=== PATIENT | female | born 1980 | race Asian ===

== ENCOUNTER 2016-06-10 06:35 | Inpatient (IN) | payer OTHER ==
[2016-06-10] MEDS ORDERED: ELECTROLYTE-148 SOLN 500 ML IV ONE (07:00)
[2016-06-10 07:44] VITALS: BMI 33.6
[2016-06-10] MEDS ORDERED: CITRIC ACID/SODIUM CITRATE 30 ML UNIT-DOSE CUP PO ONE (07:59)
[2016-06-10] MEDS ORDERED: ELECTROLYTE-148 SOLN 1,000 ML IV SCH (08:00)
--- NOTE | 2016-06-10 08:05 | HP ---
Past Medical History - Primary Care Physician PCP:: Kirsten Waite - Admission Chief Complaint: Previous cs x3. labor. gestational diabetes insulin dependent History of Present Illness: 35 yo EGA 38 weeks with gestational DM on insulin for repeat CS. Pt without complaints History Source: Patient - Past Medical History ...: 4 ...Para: 3 ...Term: 2 ...: 1 ...Spon : 1 ...LMP: 09/18/15 ... Weeks Gestation by Dates: 38 ...EDC by Dates: 06/24/16 ...EDC by Sono: 06/23/16 - Past Surgical History Past Surgical History: Yes: Hx Myomectomy: No Hx Transabdominal Cerclage: No - Smoking History Smoking history: Never smoked Have you smoked in the past 12 months: No Aproximately how many cigarettes per day: 0 - Alcohol/Substance Use Hx Alcohol Use: No History of Substance Use: reports: None - Social History History of Recent Travel: Yes Home Medications - Allergies Allergies/Adverse Reactions: Allergies Allergy/AdvReac Type Severity Reaction Status Date / Time No Known Allergies Allergy Verified 06/03/16 09:17 - Home Medications Home Medications: Ambulatory Orders Insulin NPH 26 unit SQ BID 06/10/16 Insulin Regular 15 unit SQ BID 06/10/16 Vitamins (Sjr) - 1 tab PO DAILY 06/10/16 Review of Systems - Review of Systems Constitutional: reports: No Symptoms Eyes: reports: No Symptoms HENT: reports: No Symptoms Neck: reports: No Symptoms Cardiovascular: reports: No Symptoms Respiratory: reports: No Symptoms Gastrointestinal: reports: Abdominal Pain Genitourinary: reports: No Symptoms Breasts: reports: No Symptoms Reported Musculoskeletal: reports: No Symptoms Integumentary: reports: No Symptoms Neurological: reports: No Symptoms Endocrine: reports: No Symptoms Hematology/Lymphatic: reports: No Symptoms Psychiatric: reports: No Symptoms Physical Exam - Maternity Vital Signs: Vital Signs Temperature 98 F 06/10/16 07:19 Pulse Rate 90 06/10/16 07:19 Respiratory Rate 20 06/10/16 07:19 Blood Pressure 123/70 06/10/16 07:19 O2 Sat by Pulse Oximetry (%) Constitutional: Yes: Well Nourished, No Distress Neck: Yes: WNL Cardiovascular: Yes: WNL, Regular Rate and Rhythm Breast(s): Yes: WNL - Abdominal Exam/OB Number of Fetuses: Single Presentation: Vertex Contractions: Yes Regularity: Irregular Monitor Mode: External Category: I Decelerations: None - Vaginal Exam/OB Vaginal Bleediing: No Speculum Exam: No Dilatation (cm): closed Amniotic Membrane Status: Intact Presentation: Vertex/Position - Physical Exam Musculoskeletal: Yes: WNL Extremities: Yes: WNL Integumentary: Yes: WNL Hemorrhage Risk Assessment - Risk Factors Medium Risk Factors: Yes: Prior , uterine surgery,or multiple laparotomies Risk Score: 1 Risk Level: Medium Risk Problem List - Problems (1) delivery delivered Code(s): O82 - ENCOUNTER FOR DELIVERY WITHOUT INDICATION (2) Gestational diabetes mellitus (GDM) in puerperium Code(s): O24.439 - GESTATIONAL DIABETES IN THE PUERPERIUM, UNSP CONTROL Assessment/Plan Previous Section x 3 Gestational DM on insulin Pod2 Plan repeat CS
[2016-06-10] MEDS ORDERED: morphine SULFATE/Preservative Free 0.5 MG/ML (1cc Syringe) SPIN ONE (08:17)
[2016-06-10] MEDS ORDERED: ONDANSETRON 4 MG/2 ML VIAL IVPB PRN (08:48)
[2016-06-10 09:03] LABS: ARTERIAL BLD GAS O2 SATURATION 12.3 % (90-98.9); ARTERIAL BLOOD GAS HCO3 24.8 meq/L (22-26)
[2016-06-10 09:05] LABS: ARTERIAL BLD GAS O2 SATURATION 54.4 % (90-98.9); ARTERIAL BLOOD GAS BASE EXCESS -3.7 meq/l (-2-2); ARTERIAL BLOOD GAS HCO3 22.1 meq/L (22-26); ARTERIAL BLOOD GAS pH 7.32 (7.35-7.45)
[2016-06-10 09:08] LABS: ARTERIAL BLOOD GAS pH 7.23 (7.35-7.45)
[2016-06-10 09:09] LABS: ARTERIAL BLOOD GAS PO2 26.2 mmHg (80-100)
[2016-06-10] MEDS ORDERED: diphenhydrAMINE HCL 25 MG CAPSULE (FP) PO PRN (09:27)
[2016-06-10] MEDS ORDERED: WITCH HAZEL 50% (TUCKS) 40 PAD/JAR PAD TP PRN (09:27)
[2016-06-10] MEDS ORDERED: METHYLERGONOVINE MALEATE 0.2 MG/1 ML AMP IM PRN (09:27)
[2016-06-10] MEDS ORDERED: oxyCODONE HCL 5 MG TABLET PO PRN ×2 (09:27)
[2016-06-10] MEDS ORDERED: IBUPROFEN 600 MG TABLET (FP) PO PRN (09:27)
[2016-06-10] MEDS ORDERED: BENZOCAINE 28 GM HEMORRHOIDAL OINTMENT PR PRN (09:27)
[2016-06-10] MEDS ORDERED: HYDROmorphone HCL 2 MG TABLET PO PRN (09:27)
[2016-06-10] MEDS ORDERED: ACETAMINOPHEN 325 MG TABLET (FP) PO PRN (09:27)
[2016-06-10] MEDS ORDERED: BENZOCAINE 20% 57 GM BOTTLE TP PRN (09:27)
[2016-06-10] MEDS ORDERED: IBUPROFEN 800 MG/8 ML IJ IVPB PRN (09:27)
--- NOTE | 2016-06-10 09:27 | OP ---
Operative Note - Note: Operative Date: 06/10/16 Pre-Operative Diagnosis: Previous Section x 3. gestational DM on insulin. labor Operation: Repeat Section Findings: Live female nuchal x 1 Post-Operative Diagnosis: Same as Pre-op Surgeon: Kirsten Waite Data Warehouse Architect: Irving Charlton Anesthesiologist/INVESTOR RELATIONS ASSOCIATE: Sebastian Mcguire Anesthesia: Spinal Estimated Blood Loss (mls): 600 Operative Report Dictated: Yes
[2016-06-10] MEDS ORDERED: OXYTOCIN 20 UNITS in 0.9% NS 1,000 ML IV SCH (09:30)
--- NOTE | 2016-06-10 10:12 | OP ---
DATE OF OPERATION: 06/10/2016 PREOPERATIVE DIAGNOSES: 1. Previous section x3. 2. Gestational diabetes on insulin. 3. Labor. 4. Intrauterine at 38 weeks. POSTOPERATIVE DIAGNOSES: 1. Previous section x3. 2. Gestational diabetes on insulin. 3. Labor. 4. Intrauterine at 38 weeks. 5. Live female . SURGERY: Repeat section. SURGEON: Kirsten Waite MD NETWORK SYSTEMS INTEGRATOR: AL Parada; MD unavailable. ANESTHESIA: Spinal. ANESTHESIOLOGIST: Randall Mcguire MD FINDINGS: Live female delivered in OT position. Nuchal cord x1. PROCEDURE: Patient was taken to the operating room, placed in dorsal lithotomy position, prepped and draped in the usual sterile fashion. Timeout was performed in accordance to hospital regulation. A scalpel was then used to make a Pfannenstiel skin incision through the patient's previous scar. Cautery was then used to go through layers of abdominal wall to the level of the fascia. Fascia was cut in the midline, and cautery was then used to open the fascia in the following fashion. Yasmani was then used to bluntly and sharply dissect the rectus muscles to fascia. Muscles split in the midline, and peritoneal cavity was then entered and carried upward and downward. Bladder retractor was then placed. Vesicouterine reflection was then entered, and bladder was bluntly dissected out of the operative field. Scalpel was then used to make a low transverse uterine incision. Incision was carried upwards using bandage scissors. A live female infant was delivered in OT position. Nose and mouth suction performed. Nuchal cord x1 was reduced. Shoulders were delivered without difficulty. Cord was clamped and cut. Cord blood obtained. Cord pH obtained. Infant was handed to chemical manager. Apgars 9 and 9 and 9 pounds 2 ounces. Placenta was extracted from the uterus. Uterus exteriorized and cleaned with clean laparotomy pads. Tubes and ovaries were noted to be normal. Uterine incision closed using 0 Biosyn suture, 1st layer of continuous and locking, 2nd layer imbricating the 1st layer. Hemostasis was achieved. Uterus interiorized. Abdominal cavity cleaned with clean laparotomy pads. Hemostasis was achieved, and peritoneum closed using 0 Biosyn suture. Muscles approximated in the midline using 0 Biosyn suture. Fascia was then closed using 0 Vicryl suture in 2 parts. Skin was then closed using 3-0 Vicryl in subcuticular fashion. Wounds washed and dressed. Patient tolerated the procedure well, was taken to recovery room in stable condition. ESTIMATED BLOOD LOSS: 600 mL. Dirk [id number] MTDD
[2016-06-10] MEDS ORDERED: ACETAMINOPHEN 1000 MG/100 ML VIAL (NON FORMULARY) IVPB ONE (10:50)
[2016-06-10] MEDS ORDERED: MISOPROSTOL 200 MCG TABLET PO ONE (10:55)
[2016-06-10] MEDS ORDERED: MISOPROSTOL 200 MCG TABLET NR ONE (10:55)
--- NOTE | 2016-06-10 11:02 | PN ---
Post Progress Note - Subjective Subjective: Came to evaluate patient due to heavy lochia/bleeding. Pt s/p uncomplicated repeat section this a.m. Post Day: 0 Type of Delivery: Repeat C/S Vital Signs: Vital Signs Temperature 97 F L 06/10/16 10:15 Pulse Rate 75 06/10/16 10:15 Respiratory Rate 20 06/10/16 10:15 Blood Pressure 104/65 06/10/16 10:15 O2 Sat by Pulse Oximetry (%) Uterus: Yes: Fundus above umbilicus, Other (bimanual examination performed, lower uterine segment with atony and approx 400cc of blood clot expressed) Abdomen/GI: Yes: Abdomen soft, Tender (appropriate post surgical tenderness) Lochia, amount: Heavy Perineum: Yes: Intact Problem List - Problems (1) delivery delivered Code(s): O82 - ENCOUNTER FOR DELIVERY WITHOUT INDICATION Assessment/Plan Post heavy lochia due to uterine atony- EBL total with C section and post expression of clot = 1000cc so far. one dose of IM methergine given at 1030 and 1000 of OR cytotec given at 1055. Currently VSS Will monitor/observe closely, if continues to have heavy lochia will crossmatch for 2 U PRBC and consider adding hemabate to regimen.
[2016-06-10] MEDS: D5W-LR W/ 20 UNITS OXYTOCIN 1,000 ML IV SCH ×2 (12:50→21:38)
[2016-06-10 13:39] LABS: BASOPHIL 0.1 % (0-2.0); MCH 23.2 pg (25.7-33.7); MCHC 31.4 g/dl (32.0-36.0); MEAN CELL VOLUME 73.7 fl (80-96); MEAN PLT VOLUME 9.4 fl (7.5-11.1); PLATELET COUNT 130 K/MM3 (134-434); RDW 16.8 % (11.6-15.6); WHITE BLOOD COUNT 11.1 K/mm3 (4.0-10.0)
[2016-06-10] MEDS: METHYLERGONOVINE MALEATE 0.2 MG/1 ML AMP IM SCH ×4 (14:36→22:54)
--- NOTE | 2016-06-10 14:36 | CONSULT ---
Consult Consult Specialty:: Endocrinology for Dr Ferguson Referred by:: Dr Waite Reason for Consultation:: Gestational DM - History of Present Illness Chief Complaint: Gestational DM History of Present Illness: This is a 35 year F S/P C Section with h/o Gestational DM in all three pregnancies treated with Insulin is referred for management. Blood sugar currently acceptable. Currently on Ringers' lactate with D5. C/O feeling sleepy as she got Benadryl. She doesn't take any antidiabetic medications between pregnancies. - History Source History Provided By: Patient, Medical Record Limitations to Obtaining History: No Limitations - Past Medical History Endocrine: Yes: Other (Gestational DM) - Past Surgical History Past Surgical History: Yes: - Alcohol/Substance Use Hx Alcohol Use: No History of Substance Use: reports: None - Smoking History Smoking history: Never smoked Have you smoked in the past 12 months: No Aproximately how many cigarettes per day: 0 - Social History History of Recent Travel: Yes Home Medications - Allergies Allergies/Adverse Reactions: Allergies Allergy/AdvReac Type Severity Reaction Status Date / Time No Known Allergies Allergy Verified 06/03/16 09:17 - Home Medications Home Medications: Ambulatory Orders Insulin NPH 26 unit SQ BID 06/10/16 Insulin Regular 15 unit SQ BID 06/10/16 Vitamins (Sjr) - 1 tab PO DAILY 06/10/16 Family Disease History - Family Disease History Family Disease History: Diabetes: Mother Review of Systems - Review of Systems Constitutional: reports: No Symptoms Eyes: reports: No Symptoms HENT: reports: No Symptoms Neck: reports: No Symptoms Cardiovascular: reports: No Symptoms Respiratory: reports: No Symptoms Gastrointestinal: reports: No Symptoms Genitourinary: reports: No Symptoms Musculoskeletal: reports: No Symptoms Integumentary: reports: No Symptoms Neurological: reports: No Symptoms Physical Exam Vital Signs: Vital Signs Temperature 100.5 F H 06/10/16 13:30 Pulse Rate 98 H 06/10/16 13:30 Respiratory Rate 20 06/10/16 13:30 Blood Pressure 109/56 06/10/16 13:30 O2 Sat by Pulse Oximetry (%) Constitutional: Yes: No Distress, Calm Eyes: Yes: Conjunctiva Clear, EOM Intact HENT: Yes: Atraumatic, Normocephalic Neck: Yes: Supple, Trachea Midline Cardiovascular: Yes: Regular Rate and Rhythm Respiratory: Yes: Regular, CTA Bilaterally Gastrointestinal: Yes: Soft Musculoskeletal: Yes: WNL Extremities: Yes: WNL Edema: No Neurological: Yes: Alert, Oriented Labs: CBC, BMP 06/10/16 13:25 Problem List - Problems (1) delivery delivered Code(s): O82 - ENCOUNTER FOR DELIVERY WITHOUT INDICATION Assessment/Plan Gestational DM BGM Q 4hrs Novolog SS coverage if BGM >200 Will F/U S/P C Section
[2016-06-10] MEDS: Insulin (LOG) Aspart 100 UNITS/ML VIAL SQ SCH ×3 (14:57→22:54)
[2016-06-10] MEDS: SIMETHICONE 80 MG TAB.CHEW (FP) PO PRN (16:13)
[2016-06-10] MEDS: ACETAMINOPHEN 325 MG TABLET (FP) PO PRN (16:15)
[2016-06-11] MEDS: SIMETHICONE 80 MG TAB.CHEW (FP) PO PRN ×4 (01:59→23:12)
[2016-06-11] MEDS: IBUPROFEN 600 MG TABLET (FP) PO PRN ×4 (01:59→23:12)
[2016-06-11] MEDS: ACETAMINOPHEN 325 MG TABLET (FP) PO PRN ×4 (02:00→23:11)
[2016-06-11] MEDS: Insulin (LOG) Aspart 100 UNITS/ML VIAL SQ SCH ×2 (02:48→06:39)
[2016-06-11] MEDS: D5W-LR W/ 20 UNITS OXYTOCIN 1,000 ML IV SCH (05:17)
[2016-06-11 07:28] LABS: MCH 23.2 pg (25.7-33.7); MCHC 31.3 g/dl (32.0-36.0); MEAN CELL VOLUME 74.1 fl (80-96); PLATELET COUNT 126 K/MM3 (134-434); RDW 16.9 % (11.6-15.6); WHITE BLOOD COUNT 11.4 K/mm3 (4.0-10.0)
--- NOTE | 2016-06-11 09:07 | PN ---
Progress Note (short form) - Note Progress Note: Denies any complaints Blood sugar acceptable On regular diet Vital Signs Period Temp Pulse Resp BP Sys/Raphael Pulse Ox Last 24 Hr 97 F-101.8 F 60-101 18-20 93-140/50-89 PE: AOx3 Neck:Supple, No JVD HEENT: PERRL, EOMI Lungs: CTA CVS: S1S2 Abd: Benign Ext: No edema Neuro: No focal deficit CMP POC Glucometer 105 UNITS (()) 06/11/16 06:36 Current Medications Generic Name Dose Route Start Last Admin Trade Name Freq PRN Reason Stop Dose Admin Acetaminophen 650 mg 06/10/16 08:48 06/11/16 07:47 Tylenol - PO 650 mg Q4H PRN Administration FEVER OR PAIN Benzocaine 1 applic 06/10/16 09:27 Americaine Ointment - [place] PRN PRN PAIN Benzocaine 1 spray 06/10/16 09:27 Americaine 20% [place] - TP PRN PRN PAIN Bisacodyl 10 mg 06/11/16 09:27 Dulcolax Suppository - RC PRN PRN CONSTIPATION Diphenhydramine HCl 25 mg 06/10/16 08:48 06/11/16 02:43 Benadryl Injection - IVPUSH 25 mg Q4H PRN Administration Pruritis Diphenhydramine HCl 25 mg 06/10/16 09:27 Benadryl - PO Q6H PRN FOR ITCHING Hydromorphone HCl 4 mg 06/10/16 09:27 Dilaudid - PO 06/11/16 09:26 Q4H PRN PAIN Dextrose/Lactated Ringer's 1,000 mls @ 125 mls/hr 06/10/16 13:00 06/11/16 05:17 Pitocin 20 Units In D5-Lr - IV 125 mls/hr ASDIR BONIFACIO Administration Ibuprofen 600 mg 06/10/16 08:48 06/11/16 07:49 Motrin - PO 600 mg Q4H PRN Administration PAIN Insulin Aspart 0 units 06/10/16 14:45 06/11/16 06:39 Novolog SQ Not Given Q4H BONIFACIO Protocol Oxycodone HCl 5 mg 06/10/16 09:27 Roxicodone - PO Q4H PRN PAIN LEVEL 1-5 Oxycodone HCl 10 mg 06/10/16 09:27 Roxicodone - PO Q4H PRN PAIN LEVEL 6-10 Senna/Docusate Sodium 2 tablet 06/12/16 22:00 Pericolace - PO HS PRN CONSTIPATION Simethicone 80 mg 06/10/16 09:27 06/11/16 07:47 Mylicon - PO 80 mg Q4H PRN Administration GAS Witch Ruth/Glycerin 1 pad 06/10/16 09:27 Tucks Pads - TP PRN PRN PAIN AP: Gestational DM: BGMN Qachs Novolog SS coverage S/P C section Problem List - Problems (1) delivery delivered Code(s): O82 - ENCOUNTER FOR DELIVERY WITHOUT INDICATION
[2016-06-11] MEDS ORDERED: BISACODYL 10 MG SUPP.RECT RC PRN (09:27)
--- NOTE | 2016-06-11 10:39 | PN ---
Progress Note, Physician Chief Complaint: Pt. ambulating and voiding, no DU, pain controlled. - Current Medication List Current Medications: Active Medications Acetaminophen (Tylenol -) 650 mg PO Q4H PRN PRN Reason: FEVER OR PAIN Last Admin: 06/11/16 07:47 Dose: 650 mg Benzocaine (Americaine Ointment -) 1 applic [place] PRN PRN PRN Reason: PAIN Benzocaine (Americaine 20% [place] -) 1 spray TP PRN PRN PRN Reason: PAIN Bisacodyl (Dulcolax Suppository -) 10 mg RC PRN PRN PRN Reason: CONSTIPATION Diphenhydramine HCl (Benadryl Injection -) 25 mg IVPUSH Q4H PRN PRN Reason: Pruritis Last Admin: 06/11/16 02:43 Dose: 25 mg Diphenhydramine HCl (Benadryl -) 25 mg PO Q6H PRN PRN Reason: FOR ITCHING Dextrose/Lactated Ringer's (Pitocin 20 Units In D5-Lr -) 1,000 mls @ 125 mls/ hr IV ASDIR BONIFACIO Last Admin: 06/11/16 05:17 Dose: 125 mls/hr Ibuprofen (Motrin -) 600 mg PO Q4H PRN PRN Reason: PAIN Last Admin: 06/11/16 07:49 Dose: 600 mg Insulin Aspart (Novolog Vial Sliding Scale -) 1 vial SQ TIDAC BONIFACIO PRN Reason: Protocol Insulin Aspart (Novolog Vial Sliding Scale -) 1 vial SQ HS BONIFACIO PRN Reason: Protocol Oxycodone HCl (Roxicodone -) 5 mg PO Q4H PRN PRN Reason: PAIN LEVEL 1-5 Oxycodone HCl (Roxicodone -) 10 mg PO Q4H PRN PRN Reason: PAIN LEVEL 6-10 Senna/Docusate Sodium (Pericolace -) 2 tablet PO HS PRN PRN Reason: CONSTIPATION Simethicone (Mylicon -) 80 mg PO Q4H PRN PRN Reason: GAS Last Admin: 06/11/16 07:47 Dose: 80 mg Witch Ruth/Glycerin (Tucks Pads -) 1 pad TP PRN PRN PRN Reason: PAIN - Objective Vital Signs: Vital Signs Temperature 97.8 F 06/11/16 08:27 Pulse Rate 60 06/11/16 08:27 Respiratory Rate 20 06/11/16 08:27 Blood Pressure 140/89 06/11/16 08:27 O2 Sat by Pulse Oximetry (%) Constitutional: Yes: Well Nourished, No Distress, Calm Musculoskeletal: Yes: WNL Neurological: Yes: WNL, Alert, Oriented ...Motor Strength: WNL Labs: CBC, BMP 06/11/16 06:30 Assessment/Plan POD#1 s/p repeat under spinal with Duramorph. Doing well. D/C from anesthesia care.
--- NOTE | 2016-06-11 10:49 | PN ---
[id number]: Pt doing well - Current Medications Current Medications: Active Medications Acetaminophen (Tylenol -) 650 mg PO Q4H PRN PRN Reason: FEVER OR PAIN Last Admin: 06/11/16 07:47 Dose: 650 mg Benzocaine (Americaine Ointment -) 1 applic [place] PRN PRN PRN Reason: PAIN Benzocaine (Americaine 20% [place] -) 1 spray TP PRN PRN PRN Reason: PAIN Bisacodyl (Dulcolax Suppository -) 10 mg RC PRN PRN PRN Reason: CONSTIPATION Diphenhydramine HCl (Benadryl Injection -) 25 mg IVPUSH Q4H PRN PRN Reason: Pruritis Last Admin: 06/11/16 02:43 Dose: 25 mg Diphenhydramine HCl (Benadryl -) 25 mg PO Q6H PRN PRN Reason: FOR ITCHING Dextrose/Lactated Ringer's (Pitocin 20 Units In D5-Lr -) 1,000 mls @ 125 mls/ hr IV ASDIR BONIFACIO Last Admin: 06/11/16 05:17 Dose: 125 mls/hr Ibuprofen (Motrin -) 600 mg PO Q4H PRN PRN Reason: PAIN Last Admin: 06/11/16 07:49 Dose: 600 mg Insulin Aspart (Novolog Vial Sliding Scale -) 1 vial SQ TIDAC BONIFACIO PRN Reason: Protocol Insulin Aspart (Novolog Vial Sliding Scale -) 1 vial SQ HS BONIFACIO PRN Reason: Protocol Oxycodone HCl (Roxicodone -) 5 mg PO Q4H PRN PRN Reason: PAIN LEVEL 1-5 Oxycodone HCl (Roxicodone -) 10 mg PO Q4H PRN PRN Reason: PAIN LEVEL 6-10 Senna/Docusate Sodium (Pericolace -) 2 tablet PO HS PRN PRN Reason: CONSTIPATION Simethicone (Mylicon -) 80 mg PO Q4H PRN PRN Reason: GAS Last Admin: 06/11/16 07:47 Dose: 80 mg Witch Ruth/Glycerin (Tucks Pads -) 1 pad TP PRN PRN PRN Reason: PAIN - Objective Vital Signs: Vital Signs Temperature 97.8 F 06/11/16 08:27 Pulse Rate 60 06/11/16 08:27 Respiratory Rate 20 06/11/16 08:27 Blood Pressure 140/89 06/11/16 08:27 O2 Sat by Pulse Oximetry (%) Constitutional: Yes: Well Nourished, No Distress Cardiovascular: Yes: WNL, Regular Rate and Rhythm Respiratory: Yes: WNL, Regular, CTA Bilaterally ....Post : Yes: Uterus firm, Uterus non-tender Musculoskeletal: Yes: WNL Extremities: Yes: WNL Edema: No Wound/Incision: Yes: Clean/Dry, Well Approximated Labs Lab Results: CBC, BMP 06/11/16 06:30 Problem List - Problems (1) delivery delivered Code(s): O82 - ENCOUNTER FOR DELIVERY WITHOUT INDICATION (2) Gestational diabetes mellitus (GDM) in puerperium Code(s): O24.439 - GESTATIONAL DIABETES IN THE PUERPERIUM, UNSP CONTROL Assessment/Plan POD 1 doing well CBC WBC 11.4 K/mm3 (4.0-10.0) H 06/11/16 06:30 RBC 3.36 M/mm3 (3.60-5.2) L 06/11/16 06:30 Hgb 7.8 GM/dL (10.7-15.3) L D 06/11/16 06:30 Hct 24.9 % (32.4-45.2) L 06/11/16 06:30 MCV 74.1 fl (80-96) L 06/11/16 06:30 MCHC 31.3 g/dl (32.0-36.0) L 06/11/16 06:30 RDW 16.9 % (11.6-15.6) H 06/11/16 06:30 Plt Count 126 K/MM3 (134-434) L 06/11/16 06:30 MPV 9.0 fl (7.5-11.1) 06/11/16 06:30 Neutrophils % 78.0 % (42.8-82.8) D 06/10/16 13:25 Lymphocytes % 15.3 % (8-40) D 06/10/16 13:25 Monocytes % 6.6 % (3.8-10.2) 06/10/16 13:25 Eosinophils % 0.0 % (0-4.5) D 06/10/16 13:25 Basophils % 0.1 % (0-2.0) 06/10/16 13:25 sp hemorrhage after CS cytotec/methergine gestational DM on insulin antepartum Anemia 24.9% Plan OOB percocet endo consult appreciated cbc in am ferrous sulfate daily
[2016-06-11] MEDS ORDERED: Insulin (LOG) Aspart 100 UNITS/ML VIAL SQ SCH (11:00)
[2016-06-11] MEDS: INSULIN SLIDING SCALE (NOVOLOG) 1 VIAL SQ SCH ×3 (11:02→22:14)
--- NOTE | 2016-06-12 05:40 | PN ---
Progress Note (SOAP) - Subjective Chief Complaint: Pt doing well BGM doing well - Current Medications Current Medications: Active Medications Acetaminophen (Tylenol -) 650 mg PO Q4H PRN PRN Reason: FEVER OR PAIN Last Admin: 06/11/16 23:11 Dose: 650 mg Benzocaine (Americaine Ointment -) 1 applic [place] PRN PRN PRN Reason: PAIN Benzocaine (Americaine 20% [place] -) 1 spray TP PRN PRN PRN Reason: PAIN Bisacodyl (Dulcolax Suppository -) 10 mg RC PRN PRN PRN Reason: CONSTIPATION Diphenhydramine HCl (Benadryl Injection -) 25 mg IVPUSH Q4H PRN PRN Reason: Pruritis Last Admin: 06/11/16 02:43 Dose: 25 mg Diphenhydramine HCl (Benadryl -) 25 mg PO Q6H PRN PRN Reason: FOR ITCHING Ibuprofen (Motrin -) 600 mg PO Q4H PRN PRN Reason: PAIN Last Admin: 06/11/16 23:12 Dose: 600 mg Insulin Aspart (Novolog Vial Sliding Scale -) 1 vial SQ TIDAC BONIFACIO PRN Reason: Protocol Last Admin: 06/11/16 17:13 Dose: 2 units Insulin Aspart (Novolog Vial Sliding Scale -) 1 vial SQ HS BONIFACIO PRN Reason: Protocol Last Admin: 06/11/16 22:14 Dose: Not Given Oxycodone HCl (Roxicodone -) 5 mg PO Q4H PRN PRN Reason: PAIN LEVEL 1-5 Oxycodone HCl (Roxicodone -) 10 mg PO Q4H PRN PRN Reason: PAIN LEVEL 6-10 Senna/Docusate Sodium (Pericolace -) 2 tablet PO HS PRN PRN Reason: CONSTIPATION Simethicone (Mylicon -) 80 mg PO Q4H PRN PRN Reason: GAS Last Admin: 06/11/16 23:12 Dose: 80 mg Witch Ruth/Glycerin (Tucks Pads -) 1 pad TP PRN PRN PRN Reason: PAIN - Objective Vital Signs: Vital Signs Temperature 98.0 F 06/11/16 21:22 Pulse Rate 94 H 06/11/16 21:22 Respiratory Rate 20 06/11/16 21:22 Blood Pressure 117/64 06/11/16 21:22 O2 Sat by Pulse Oximetry (%) Constitutional: Yes: Well Nourished, No Distress Cardiovascular: Yes: WNL, Regular Rate and Rhythm Respiratory: Yes: WNL, Regular, CTA Bilaterally Gastrointestinal: Yes: WNL, Normal Bowel Sounds ....Post : Yes: Uterus firm, Uterus non-tender Edema: No Wound/Incision: Yes: Clean/Dry, Well Approximated Neurological: Yes: WNL, Alert, Oriented Labs Lab Results: CBC, BMP 06/11/16 06:30 Problem List - Problems (1) delivery delivered Code(s): O82 - ENCOUNTER FOR DELIVERY WITHOUT INDICATION (2) Gestational diabetes mellitus (GDM) in puerperium Code(s): O24.439 - GESTATIONAL DIABETES IN THE PUERPERIUM, UNSP CONTROL Assessment/Plan POD 2 hemorrhage after CS requiring methergine/cytotec gestational DM on insulin antepartum doing well BGM norm no need for insulin anemia Plan OOB percocet ferrous sulfate
[2016-06-12] MEDS: IBUPROFEN 600 MG TABLET (FP) PO PRN ×3 (06:33→20:01)
[2016-06-12] MEDS: SIMETHICONE 80 MG TAB.CHEW (FP) PO PRN ×3 (06:33→20:01)
[2016-06-12] MEDS: ACETAMINOPHEN 325 MG TABLET (FP) PO PRN ×3 (06:34→20:01)
[2016-06-12] MEDS: INSULIN SLIDING SCALE (NOVOLOG) 1 VIAL SQ SCH ×4 (08:00→21:47)
[2016-06-12] MEDS: FERROUS SO4 325 MG TABLET (FP) PO SCH ×2 (09:25→17:03)
[2016-06-12] MEDS ORDERED: SENNOSIDES/DOCUSATE COMBO (SENNA PLUS) TABLET (UD) PO PRN (22:00)
[2016-06-13] MEDS: IBUPROFEN 600 MG TABLET (FP) PO PRN ×5 (02:14→23:24)
[2016-06-13] MEDS: ACETAMINOPHEN 325 MG TABLET (FP) PO PRN ×5 (02:16→23:28)
[2016-06-13] MEDS: SIMETHICONE 80 MG TAB.CHEW (FP) PO PRN ×5 (02:17→23:24)
[2016-06-13] MEDS: INSULIN SLIDING SCALE (NOVOLOG) 1 VIAL SQ SCH ×4 (06:42→21:13)
[2016-06-13 08:00] LABS: BASOPHIL 0.2 % (0-2.0); EOSINOPHIL 1.3 % (0-4.5); MCH 23.7 pg (25.7-33.7); MCHC 31.9 g/dl (32.0-36.0); MEAN CELL VOLUME 74.5 fl (80-96); MEAN PLT VOLUME 8.7 fl (7.5-11.1); NEUTROPHILS 62.1 % (42.8-82.8); PLATELET COUNT 186 K/MM3 (134-434); WHITE BLOOD COUNT 7.8 K/mm3 (4.0-10.0)
[2016-06-13] MEDS: FERROUS SO4 325 MG TABLET (FP) PO SCH ×3 (08:27→17:30)
--- NOTE | 2016-06-13 08:28 | PN ---
Progress Note, Physician Chief Complaint: darin offers no complaints she denies any dizziness ambulate without any symptoms History of Present Illness: s/p section day 3 incision is healing well sterri strips are fallen out , incision is dressed and strri are replaced. - Current Medication List Current Medications: Active Medications Acetaminophen (Tylenol -) 650 mg PO Q4H PRN PRN Reason: FEVER OR PAIN Last Admin: 06/13/16 02:16 Dose: 650 mg Benzocaine (Americaine Ointment -) 1 applic [place] PRN PRN PRN Reason: PAIN Benzocaine (Americaine 20% [place] -) 1 spray TP PRN PRN PRN Reason: PAIN Bisacodyl (Dulcolax Suppository -) 10 mg RC PRN PRN PRN Reason: CONSTIPATION Diphenhydramine HCl (Benadryl Injection -) 25 mg IVPUSH Q4H PRN PRN Reason: Pruritis Last Admin: 06/11/16 02:43 Dose: 25 mg Diphenhydramine HCl (Benadryl -) 25 mg PO Q6H PRN PRN Reason: FOR ITCHING Ferrous Sulfate (Feosol -) 325 mg PO BIDWM BONIFACIO Last Admin: 06/12/16 17:03 Dose: 325 mg Ibuprofen (Motrin -) 600 mg PO Q4H PRN PRN Reason: PAIN Last Admin: 06/13/16 02:14 Dose: 600 mg Insulin Aspart (Novolog Vial Sliding Scale -) 1 vial SQ TIDAC BONIFACIO PRN Reason: Protocol Last Admin: 06/13/16 06:42 Dose: Not Given Insulin Aspart (Novolog Vial Sliding Scale -) 1 vial SQ HS BONIFACIO PRN Reason: Protocol Last Admin: 06/12/16 21:47 Dose: Not Given Oxycodone HCl (Roxicodone -) 5 mg PO Q4H PRN PRN Reason: PAIN LEVEL 1-5 Oxycodone HCl (Roxicodone -) 10 mg PO Q4H PRN PRN Reason: PAIN LEVEL 6-10 Senna/Docusate Sodium (Pericolace -) 2 tablet PO HS PRN PRN Reason: CONSTIPATION Simethicone (Mylicon -) 80 mg PO Q4H PRN PRN Reason: GAS Last Admin: 06/13/16 02:17 Dose: 80 mg Witch Ruth/Glycerin (Tucks Pads -) 1 pad TP PRN PRN PRN Reason: PAIN - Objective Vital Signs: Vital Signs Temperature 98.0 F 06/12/16 22:00 Pulse Rate 88 06/12/16 22:00 Respiratory Rate 20 06/12/16 22:00 Blood Pressure 115/68 06/12/16 22:00 O2 Sat by Pulse Oximetry (%) Constitutional: Yes: Well Nourished, No Distress, Calm Eyes: Yes: WNL, Conjunctiva Clear HENT: Yes: WNL, Atraumatic, Normocephalic Neck: Yes: WNL, Supple Cardiovascular: Yes: WNL, Regular Rate and Rhythm Respiratory: Yes: WNL, Regular Gastrointestinal: Yes: WNL, Normal Bowel Sounds ...Rectal Exam: Yes: WNL Genitourinary: Yes: WNL Breast(s): Yes: WNL Musculoskeletal: Yes: WNL Extremities: Yes: WNL Edema: No Peripheral Pulses WNL: Yes Integumentary: Yes: WNL Wound/Incision: Yes: Clean/Dry, Well Approximated Neurological: Yes: WNL, Oriented ...Motor Strength: WNL Psychiatric: Yes: Alert, Oriented Labs: CBC, BMP 06/13/16 07:00 Assessment/Plan s/p sectio day 3 anemia due to blood loss patient is asymptomatic plan to place on fe tid consider discharge home in am
[2016-06-13] MEDS ORDERED: INSULIN REGULAR SQ SCH (10:00)
[2016-06-13] MEDS: PRENATAL VITAMINS W/ FOLIC ACID TABLET (FP) PO SCH (10:00)
[2016-06-13] MEDS ORDERED: INSULIN ISOPHANE SQ SCH (10:00)
[2016-06-14] MEDS: IBUPROFEN 600 MG TABLET (FP) PO PRN ×4 (04:46→16:59)
[2016-06-14] MEDS: SIMETHICONE 80 MG TAB.CHEW (FP) PO PRN ×4 (04:46→16:59)
[2016-06-14] MEDS: ACETAMINOPHEN 325 MG TABLET (FP) PO PRN ×4 (04:48→17:00)
[2016-06-14] MEDS: INSULIN SLIDING SCALE (NOVOLOG) 1 VIAL SQ SCH ×3 (06:38→17:32)
--- NOTE | 2016-06-14 07:03 | DS ---
Physical Exam-BEER COOLER Vital Signs: Vital Signs Temperature 98.2 F 06/13/16 22:00 Pulse Rate 100 H 06/13/16 22:00 Respiratory Rate 18 06/13/16 22:00 Blood Pressure 126/80 06/13/16 22:00 O2 Sat by Pulse Oximetry (%) Constitutional: Yes: Well Nourished, No Distress Gastrointestinal: Yes: WNL, Normal Bowel Sounds, Soft ....Post : Yes: Uterus firm, Uterus non-tender Wound/Incision: Yes: Clean/Dry, Well Approximated, Open to air Neurological: Yes: WNL, Alert, Oriented Labs: CBC, BMP 06/13/16 07:00 Delivery - Delivery Type of Anesthesia: Spinal Episiotomy/Laceration: None EBL (cc): 600 Delivery, Single - Stages of Labor Date of Delivery: 06/10/16 Time of Delivery: 08:38 Time Placenta Delivered: 08:40 - Condition of Anti Air Warfare Operations Officer/Marine Superintendent Present: Yes Name: Groening,Pam Gender: Male Weight: 9 lb 2 oz Position: Left, OT Total Hours ROM (Hrs/Mins): 1min. - 1 Minute Total Score: 9 5 Minutes Total Score: 9 - Ethel Feeding Plan Initial Plan: Elected not to breastfeed exclusively throughout hospitalization Discharge Summary Reason For Visit: ADMIT Current Active Problems delivery delivered (Acute) Gestational diabetes mellitus (GDM) in puerperium (Acute) Condition: Good - Instructions Diet, Activity, Other Instructions: Physical activity Resume your normal everyday activity as tolerated no heavy lifting or exercise until seen by your surgeon. You may walk unlimited melo of and climb stairs. You may resume driving the car when you feel safe and comfortable behind the wheel. No sexual activity as instructed. Wound care If you have a bandage, leave it on, and keep dry for 48-72 hours. After that time discard the outer bandage. If they are tapes on the skin under the out of bandage leave them in place. They will peel off in the next 7 to 10 days. Do Not Peel them off. You may shower the day after surgery. If there are tapes present on the skin, you may shower over them. Diet There are no dietary restrictions. Eat healthy, high-fiber foods. Drink 6 to 8 glasses of liquid each day. This will assist in keeping your bowels are regular. Pain management You may take Tylenol or acetaminophen or Ibuprofen (for example, Motrin, Advil etc.) from my pain prescription medication is ordered should be taken as prescribed for moderate to severe pain. Call MD for any of the following: Severe pain not relieved by medication Fever of 101 or higher Excessive bleeding or drainage on dressing Inability to urinate Referrals: Kirsten Waite MD [Staff Physician] - Disposition: HOME - Home Medications Comprehensive Discharge Medication List: Ambulatory Orders Insulin NPH 26 unit SQ BID 06/10/16 Insulin Regular 15 unit SQ BID 06/10/16 Vitamins (Sjr) - 1 tab PO DAILY 06/10/16 Oxycodone HCl/Acetaminophen [Percocet 5-325 mg Tablet -] 1 tab PO Q4H #20 tablet MDD 6 06/12/16
[2016-06-14] MEDS: FERROUS SO4 325 MG TABLET (FP) PO SCH ×3 (09:10→16:59)
[2016-06-14] MEDS: PRENATAL VITAMINS W/ FOLIC ACID TABLET (FP) PO SCH (09:13)
[2016-06-14 09:30] VITALS: BP 117/84; PULSE 88; TEMP 97.4
[2016-06-14 10:27] LABS: BASOPHIL 0.2 % (0-2.0); EOSINOPHIL 0.9 % (0-4.5); MCH 24.1 pg (25.7-33.7); MCHC 31.7 g/dl (32.0-36.0); MEAN PLT VOLUME 8.6 fl (7.5-11.1); NEUTROPHILS 70.4 % (42.8-82.8); PLATELET COUNT 232 K/MM3 (134-434); RDW 17.1 % (11.6-15.6); WHITE BLOOD COUNT 7.9 K/mm3 (4.0-10.0)
--- NOTE | 2016-06-14 12:27 | PN ---
Progress Note (short form) - Note Progress Note: Denies any complaints Eager to go home BGM high prelunch today. Pt says she had milk 30 minutes prior to BGM Vital Signs Period Temp Pulse Resp BP Sys/Raphael Pulse Ox Last 24 Hr 97.4 F-98.2 F 88-100 18-20 117-126/80-84 PE: AOx3 Neck:Supple, No JVD HEENT: PERRL, EOMI Lungs: CTA CVS: S1S2 Abd: Benign Ext: No edema Neuro: No focal deficit CMP POC Glucometer 152 UNITS (()) 06/14/16 11:28 Current Medications Generic Name Dose Route Start Last Admin Trade Name Freq PRN Reason Stop Dose Admin Acetaminophen 650 mg 06/10/16 08:48 06/14/16 09:14 Tylenol - PO 650 mg Q4H PRN Administration FEVER OR PAIN Benzocaine 1 applic 06/10/16 09:27 Americaine Ointment - CT PRN PRN PAIN Benzocaine 1 spray 06/10/16 09:27 Americaine 20% [place] - TP PRN PRN PAIN Bisacodyl 10 mg 06/11/16 09:27 Dulcolax Suppository - RC PRN PRN CONSTIPATION Diphenhydramine HCl 25 mg 06/10/16 08:48 06/11/16 02:43 Benadryl Injection - IVPUSH 25 mg Q4H PRN Administration Pruritis Diphenhydramine HCl 25 mg 06/10/16 09:27 Benadryl - PO Q6H PRN FOR ITCHING Ferrous Sulfate 325 mg 06/13/16 12:00 06/14/16 12:18 Feosol - PO 325 mg TIDCM BONIFACIO Administration Ibuprofen 600 mg 06/10/16 08:48 06/14/16 09:13 Motrin - PO 600 mg Q4H PRN Administration PAIN Insulin Aspart 1 vial 06/11/16 11:00 06/14/16 11:34 Novolog Vial Sliding Scale - SQ Not Given TIDAC BONIFACIO Protocol Insulin Aspart 1 vial 06/11/16 22:00 06/13/16 21:13 Novolog Vial Sliding Scale - SQ Not Given HS BONIFACIO Protocol Oxycodone HCl 5 mg 06/10/16 09:27 Roxicodone - PO Q4H PRN PAIN LEVEL 1-5 Multivit/Folic Acid/Iron 1 tab 06/13/16 10:00 06/14/16 09:13 Vitamins (Sjr) - PO 1 tab DAILY BONIFACIO Administration Senna/Docusate Sodium 2 tablet 06/12/16 22:00 06/13/16 23:29 Pericolace - PO 2 tablet HS PRN Administration CONSTIPATION Simethicone 80 mg 06/10/16 09:27 06/14/16 09:10 Mylicon - PO 80 mg Q4H PRN Administration GAS Witch Ruth/Glycerin 1 pad 06/10/16 09:27 Tucks Pads - TP PRN PRN PAIN AP: Gestational DM: BGM Qachs Novolog SS coverage Diet exercise discussed. To check blood sugar 2 hrs after dinner. F/u in office in 2 to 3 months or earlier if BGM >150 S/P C section Problem List - Problems (1) delivery delivered Code(s): O82 - ENCOUNTER FOR DELIVERY WITHOUT INDICATION
--- NOTE | 2016-06-18 12:43 | PATH ---
Surgical Pathology Report Patient Name: RENZO MASON Med. Rec. #: [id number] /Age/Gender: 1980 (Age: 35) / F Account: [id number] Location: [facility] OBS/GROUP MANAGER Taken: 06/11/2016 Received: 06/11/2016 Reported: 06/18/2016 Physicians: Kirsten Waite M.D. Specimen(s) Received PLACENTA Clinical History SAB, c/section x2, gestational diabetes Repeat c/section Final Diagnosis PLACENTA, DELIVERY: MILTIFOCALLY DISRUPTED THIRD TRIMESTER PLACENTA WITH MODERATE INCREASE IN PREVILLOUS AND PRECHORIONIC FIBRIN DEPOSITION, THREE VESSEL UMBILICAL CORD, AND UNREMARKABLE PLACENTAL MEMBRANES. Electronically Signed Manny Mora M.D. Gross Description The specimen is received fresh, labeled "placenta" and is a 681 gram, 21.5 x 16.0 x 2.5 cm placenta with attached membranes and umbilical cord. The attached membranes are ward, translucent with focal opacities and insert marginally. The umbilical cord measures 10 cm in length and averages 1.4 cm in diameter. The cord inserts eccentrically, 2.5 cm to the nearest margin. No true knots or strictures are identified. Cut surface of the umbilical cord reveals 3 vessels. The surface is johnston-blue with fibrin deposition and appropriate caliber vessels. The maternal surface is red-brown, markedly fragmented and disrupted. Sectioning reveals red-brown, spongy parenchyma. No focal lesions are identified. Practice Professional sections are submitted in three cassettes as follows: 1- membrane rolls and umbilical cord; 2-3- full thickness sections of placenta. 06/16/201606/16/2016
== END 2016-06-14 18:05 | disposition home or self-care (01) | DRG 766 ==
LOC: JLDR 06:35 → J3W 12:30
PROVIDERS: ADMIT Obstetrics & Gynecology; ATTEND Obstetrics & Gynecology
PROC: 10D00Z1 Extraction of Products of Conception, Low, Open Approach (ICD-10-PCS; principal; 2016-06-10)
DX: O24.424 Gestational diabetes mellitus in childbirth, insulin controlled (principal); O34.219 Maternal care for unspecified type scar from previous cesarean delivery; O09.523 Supervision of elderly multigravida, third trimester; O90.81 Anemia of the puerperium; D50.0 Iron deficiency anemia secondary to blood loss (chronic); Z3A.38 38 weeks gestation of pregnancy; Z37.0 Single live birth; Z79.4 Long term (current) use of insulin
CPT/HCPCS: 36415; 36600; 71010-TC; 82803; 85025; 85027; 88307-TC

== ENCOUNTER 2017-04-02 23:26 | Emergency (ER) | payer OTHER ==
[2017-04-02 23:34] VITALS: BP 116/81; PULSE 102; TEMP 98.5; BMI 68.3
[2017-04-03] MEDS ORDERED: TETANUS AND DIPHTHERIA TOXOID 0.5 ML DISP.SYRIN IM ONE (00:55)
--- NOTE | 2017-04-03 00:58 | PDOC ---
History of Present Illness - General Chief Complaint: Laceration Stated Complaint: LACERATION Time Seen by Provider: 04/03/17 00:19 History Source: Patient Exam Limitations: No Limitations - History of Present Illness Initial Comments: 04/03/17 00:56 36yo Female patient with no significant past medical history presents to ED c/o left index finger injury. Patient states while removing garbage from can, sharp edge cut her finger. She denies any other complaints at this time. Report Tetanus not up to date. Timing/Duration: reports: just prior to arrival Severity: Yes: mild Location: reports: extremities Respiratory Risk Factors: denies: no cause identified, exposure to illness, exposure to allergen, foods, insect bite, insect sting, medications, pollen, soaps, other Modifying Factors: worse with: antihistamine, calamine lotion, prednisone, scratching, topical steriods, other Associated Symptoms: denies: denies symptoms, blisters, change in skin texture, edema, fever, flushing, headache, hives, jaundice, malaise, nasal congestion, numbness, pallor, paresthesia, petechiae, rash, sore throat, swelling/mass/lumps , tingling, other Past History - Travel Traveled outside of the country in the last 30 days: No Close contact w/someone who was outside of country & ill: No - Past Medical History Allergies/Adverse Reactions: Allergies Allergy/AdvReac Type Severity Reaction Status Date / Time No Known Allergies Allergy Verified 04/02/17 23:34 Home Medications: Ambulatory Orders Insulin NPH 26 unit SQ BID 06/10/16 Insulin Regular 15 unit SQ BID 06/10/16 Vitamins (Sjr) - 1 tab PO DAILY 06/10/16 Oxycodone HCl/Acetaminophen [Percocet 5-325 mg Tablet -] 1 tab PO Q4H #20 tablet MDD 6 06/12/16 Cephalexin Monohydrate [Keflex -] 500 mg PO BID #10 capsule 04/03/17 Asthma: No Cancer: No Cardiac Disorders: No Diabetes: No HTN: No Seizures: No Thyroid Disease: No - Immunization History Immunization Up to Date: No - Suicide/Smoking/Psychosocial Hx Smoking Status: No Smoking History: Never smoked Have you smoked in the past 12 months: No Number of Cigarettes Smoked Daily: 0 Hx Alcohol Use: No Drug/Substance Use Hx: No Hx Substance Use Treatment: No Review of Systems - Review of Systems Able to Perform ROS?: Yes Is the patient limited Turkish proficient: No Integumentary: Yes: Other (Laceration to left index.) All Other Systems: Reviewed and Negative *Physical Exam - Vital Signs Last Vital Signs Temp Pulse Resp BP Pulse Ox 98.5 F 102 H 20 116/81 99 04/02/17 23:31 04/02/17 23:31 04/02/17 23:31 04/02/17 23:31 04/02/17 23:31 - Physical Exam General Appearance: Yes: Nourished, Appropriately Dressed. No: Apparent Distress, Mild Distress, Moderate Distress, Severe Distress Neck: positive: Trachea midline, Supple. negative: Rigid, Stridor, Lymphadenopathy (R), Lymphadenopathy (L), Tender lateral, Tender midline Respiratory/Chest: positive: Lungs Clear, Normal Breath Sounds. negative: Chest Tender, Respiratory Distress, Accessory Muscle Use, Labored Respiration, Rapid RR Cardiovascular: positive: Regular Rhythm, Regular Rate Gastrointestinal/Abdominal: positive: Normal Bowel Sounds, Soft. negative: Distended, Guarding, Rebound, Tenderness Musculoskeletal: positive: Normal Inspection. negative: CVA Tenderness, Decreased Range of Motion, Vertebral Tenderness Extremity: positive: Normal Capillary Refill, Normal Inspection, Normal Range of Motion. negative: Pedal Edema, Swelling, Calf Tenderness, Erythema, Inflammation Integumentary: positive: Normal Color, Dry, Warm, Other (Irregular laceration to left index finger.) Neurologic: positive: balance truing inspector II-XII NML intact, Fully Oriented, Alert, Normal Mood/ Affect, Normal Response, Motor Strength 5/5 Procedures - Consent Consent obtained: Verbal - Laceration/Wound Repair Left Anterior 2nd digit Wound Length: to 2.5 cm Wound Explored: clean Wound's Depth, Shape: irregular, flap Irrigated w/ Saline: Yes Betadine Prep: No Anesthesia: 1% Lidocaine Amount of Anesthetic (ccs): 2 Wound Repaired With: Sutures Suture Size/Type: 4:0, nylon Number of Sutures: 4 Layer Closure: No Progress: 04/03/17 01:18 Sterile dressing applied. *DC/Admit/Observation/Transfer Diagnosis at time of Disposition: Laceration Finger injury Qualifiers: Encounter type: initial encounter Laterality: left Qualified Code(s): S69.92XA - Unspecified injury of left wrist, hand and finger(s), initial encounter; S69.92XA - Unspecified injury of left wrist, hand and finger(s), initial encounter - Discharge Dispostion Disposition: HOME Condition at time of disposition: Stable Admit: No - Prescriptions Prescriptions: Cephalexin Monohydrate [Keflex -] 500 mg PO BID #10 capsule - Patient Instructions Printed Discharge Instructions: DI for Laceration Repair, DI for Suture Removal Additional Instructions: Follow up with your primary care provider in 14 days or return to this emergency department for removal of sutures at this time. Take medications as prescribed. Return if any concerns for further evaluation. Print Language: MOSOTHO
[2017-04-03] MEDS ORDERED: CEPHALEXIN MONOHYDRATE 500 MG CAPSULE (UD) PO ONE (01:21)
[2017-04-03] MEDS ORDERED: CEPHALEXIN MONOHYDRATE 250 MG CAPSULE (FP) ONE (01:26)
== END 2017-04-03 01:42 | disposition home or self-care (01) ==
LOC: JER 23:26
PROC: 0HQGXZZ Repair Left Hand Skin, External Approach (ICD-10-PCS; principal; 2017-04-02)
PROC: 3E0234Z Introduction of Serum, Toxoid and Vaccine into Muscle, Percutaneous Approach (ICD-10-PCS; 2017-04-02)
DX: S61.211A Laceration without foreign body of left index finger without damage to nail, initial encounter (principal); W26.8XXA Contact with other sharp object(s), not elsewhere classified, initial encounter; Y93.E9 Activity, other interior property and clothing maintenance; Y92.098 Other place in other non-institutional residence as the place of occurrence of the external cause
CPT/HCPCS: 99281-25

== ENCOUNTER 2018-02-03 07:40 | Day surgery (SDC) | payer OTHER ==
[2018-02-02 12:32] VITALS: BMI 30.1
[2018-02-03 08:30] LABS: BASO % 0.2 % (0-2.0); EOS % 0.5 % (0-4.5); HEMATOCRIT 37.2 % (32.4-45.2); HEMOGLOBIN 12.1 GM/dL (10.7-15.3); LYMPH % 32.9 % (8-40); MCH 25.6 pg (25.7-33.7); MCHC 32.6 g/dl (32.0-36.0); MEAN CELL VOLUME 78.5 fl (80-96); MEAN PLT VOLUME 8.5 fl (7.5-11.1); MONO % 10.6 % (3.8-10.2); NEUT % 55.8 % (42.8-82.8); PLATELET COUNT 273 K/MM3 (134-434); RBC 4.73 M/mm3 (3.60-5.2); RDW 14.9 % (11.6-15.6); WHITE BLOOD COUNT 6.1 K/mm3 (4.0-10.0)
[2018-02-03 09:03] LABS: ALBUMIN 3.5 g/dl (3.4-5.0); ALK PHOS 55 U/L (45-117); ANION GAP 8 MMOL/L (8-16); BILIRUBIN,TOTAL 0.4 mg/dL (0.2-1.0); BLOOD UREA NITROGEN 7 mg/dL (7-18); CALCIUM 8.5 mg/dL (8.5-10.1); CHLORIDE 109 mmol/L (98-107); CO2 25 mmol/L (21-32); CREATININE 0.5 mg/dL (0.55-1.02); GLUCOSE,RANDOM 120 mg/dL (74-106); POTASSIUM 4.1 mmol/L (3.5-5.1); SGOT/AST 13 U/L (15-37); SGPT/ALT 23 U/L (12-78); SODIUM 142 mmol/L (136-145); TOT PROT 6.9 g/dl (6.4-8.2)
[2018-02-03] MEDS ORDERED: ONDANSETRON 4 MG/2 ML VIAL IVPUSH PRN (09:15)
[2018-02-03] MEDS ORDERED: LACTATED RINGERS SOLUTION 1,000 ML IV SCH (09:15)
[2018-02-03] MEDS ORDERED: fentaNYL CITRATE 250 MCG/5 ML VIAL ONE (09:20)
[2018-02-03] MEDS ORDERED: PROPOFOL 20 ML ONE (09:21)
[2018-02-03] MEDS ORDERED: MIDAZOLAM HCL 2 MG/2 ML SINGLE DOSE VIAL ONE (09:21)
--- NOTE | 2018-02-03 09:25 | HP ---
History & Physical Update - History History: No Change - Physical Physical: No Change - Assessment Assessment: No Change - Plan Plan: No Change (Patient to have excision of soft tissue mass on the left side of her back. Consent obtained.)
[2018-02-03] MEDS ORDERED: ceFAZolin SODIUM 1 GM VIAL ONE (10:01)
[2018-02-03] MEDS ORDERED: ceFAZolin SODIUM 1 GM VIAL IVPB ONE (10:02)
--- NOTE | 2018-02-03 10:42 | OP ---
Operative Note - Note: Operative Date: 02/03/18 Pre-Operative Diagnosis: 5 cm. mass on left side of back. Operation: Excision of 5 cm. mass on back with layered closure ( repair of wound ). Findings: Firm mass extending deep to deep fascia, epidermal inclusion cyst. Surgeon: Dimitry Fletcher Specimens Removed: Mass on back. Estimated Blood Loss (mls): 5 Operative Report Dictated: Yes
--- NOTE | 2018-02-03 12:12 | OP ---
DATE OF OPERATION: 02/03/2018 PREOPERATIVE DIAGNOSIS: Large mass on the left side of her back for the past few years. POSTOPERATIVE DIAGNOSIS: A 5-cm in diameter mass on the left side of the back extending deep to the deep fascia. OPERATIVE PROCEDURE: Excision of 5-cm mass on the back deep to the deep fascia with layered closure (suppurative open wound). ANESTHESIA: General anesthesia. SURGEON: Elvia Lion MD OPERATIVE DESCRIPTION: This 37-year-old woman has had an enlarging mass on the left side of her back for the past few years of significant induration around that area, extending to about 4-5 cm in diameter. The patient was brought in for excision of the lesion. The side was marked. Patient was brought to the operating room. General anesthesia was administered. She was given 2 g of Ancef. She was placed in the right lateral position. The area was painted and draped. Time-out was called. Elliptical incision 5 cm in length was made around the lesion. Skin was undermined on both sides beyond the palpable extent of the lesion. The lesion extended deep into the subcutaneous fat down to the deep fascia, which was also to be excised. This lesion was excised, sent to Pathology. Hemostasis was obtained using electrocautery. The wound was thoroughly irrigated with normal saline. The wound was then closed in layers approximating the deep fascia with buried interrupted 3-0 Vicryl sutures, the subcutaneous fat with interrupted 3-0 Vicryl sutures, and skin was approximated with 2-0 silk sutures in a vertical mattress fashion. Hemostasis was satisfactory at the completion of the procedure. Estimated blood loss was between 5 to 10 mL. Dressing was applied. Patient tolerated the procedure well, was extubated, and sent to the recovery room in satisfactory and stable condition. Patient will be followed as an outpatient in my office. Dirk [id number]
[2018-02-03 12:33] VITALS: TEMP 98.1
[2018-02-03] MEDS ORDERED: ACETAMINOPHEN 325 MG TABLET (FP) PO ONE ×2 (13:01→13:11)
[2018-02-03 18:33] VITALS: BP 93/52; PULSE 89
--- NOTE | 2018-02-06 19:04 | PATH ---
Surgical Pathology Report Patient Name: RENZO [facility]. Rec. #: [id number] /Age/Gender: 1980 (Age: 37) / F Account: [id number] Location: [facility] SURGICAL Taken: 02/03/2018 Received: 02/03/2018 Reported: 02/06/2018 Physicians: Era Fletcher M.D. Specimen(s) Received MASS OF BACK Clinical History Left back mass Final Diagnosis MASS, LEFT BACK, EXCISION: SEGMENT OF SKIN WITH EPIDERMAL INCLUSION CYST. Electronically Signed Claudette Triana M.D. Gross Description Received in formalin labeled "back mass," is a 4.5 x 2.6 x 1.8 cm portion of soft tissue which is partially surfaced by a 2.5 x 0.8 cm brown, elliptical, unremarkable portion of skin. Sectioning reveals a cyst containing ward-brown sebaceous material. A livestock sales representative section is submitted in one cassette. 02/03/2018 saudi02/03/2018
== END 2018-02-03 17:00 | disposition home or self-care (01) ==
LOC: JASU-SURG 07:40
PROVIDERS: ATTEND Specialist
PROC: 0JB70ZZ Excision of Back Subcutaneous Tissue and Fascia, Open Approach (ICD-10-PCS; principal; 2018-02-03 09:30)
DX: D48.1 Neoplasm of uncertain behavior of connective and other soft tissue (principal)
CPT/HCPCS: 36415; 80053; 84703; 85025; 88307-TC; 94760

== ENCOUNTER 2018-10-11 20:19 | Emergency (ER) | payer OTHER ==
[2018-10-11 20:27] VITALS: BP 103/63; PULSE 68; TEMP 98; BMI 30.9
--- NOTE | 2018-10-11 20:40 | PDOC ---
History of Present Illness - General Chief Complaint: Chest Pain Stated Complaint: CHEST PAIN Time Seen by Provider: 10/11/18 20:39 History Source: Patient Past History - Past Medical History Allergies/Adverse Reactions: Allergies Allergy/AdvReac Type Severity Reaction Status Date / Time Anesthetics - Amide Type Allergy Mild Itching Verified 10/11/18 20:27 Home Medications: Ambulatory Orders Clobetasol Propionate/Emoll [Clobetasol Emollient 0.05% Crm] 15 gm TP DAILY Ibuprofen [Motrin -] 400 mg PO TID #21 tablet 02/03/18 Asthma: No Cancer: No Cardiac Disorders: No COPD: No Diabetes: No (gestesational) HTN: No Seizures: No Thyroid Disease: No - Immunization History Immunization Up to Date: No - Suicide/Smoking/Psychosocial Hx Smoking Status: No Smoking History: Never smoked Have you smoked in the past 12 months: No Number of Cigarettes Smoked Daily: 0 Information on smoking cessation initiated: No Hx Alcohol Use: No Drug/Substance Use Hx: No Substance Use Type: None Hx Substance Use Treatment: No *Physical Exam - Vital Signs Last Vital Signs Temp Pulse Resp BP Pulse Ox 98.0 F 68 16 103/63 100 10/11/18 20:25 10/11/18 20:25 10/11/18 20:25 10/11/18 20:25 10/11/18 20:25 Heart Score/ECG Review - ECG Impressions Comment:: 10/11/18 20:40 EKG shows NSR HR 61, TWI in leads II, V3 no PARKER/STD
[2018-10-11] MEDS ORDERED: KETOROLAC TROMETHAMINE 30 MG/1 ML VIAL IVPUSH ONE (20:56)
[2018-10-11] MEDS ORDERED: KETOROLAC TROMETHAMINE 30 MG/1 ML VIAL ONE (21:07)
[2018-10-11 21:10] LABS: BASO % 0.6 % (0-2.0); EOS % 0.6 % (0-4.5); HEMATOCRIT 37.6 % (32.4-45.2); HEMOGLOBIN 12.3 GM/dL (10.7-15.3); LYMPH % 31.4 % (8-40); MCH 25.9 pg (25.7-33.7); MCHC 32.8 g/dl (32.0-36.0); MEAN CELL VOLUME 79.1 fl (80-96); MEAN PLT VOLUME 7.9 fl (7.5-11.1); MONO % 10.1 % (3.8-10.2); NEUT % 57.3 % (42.8-82.8); PLATELET COUNT 301 K/MM3 (134-434); RBC 4.75 M/mm3 (3.60-5.2); RDW 14.7 % (11.6-15.6); WHITE BLOOD COUNT 7.9 K/mm3 (4.0-10.0)
--- NOTE | 2018-10-11 21:22 | PDOC ---
Documentation entered by Garcia Bernard SCRIBE, acting as scribe for Annie Jarrett DO. Annie Jarrett DO: This documentation has been prepared by the Marco Antonio rucker Daniel, SCRIBE, under my direction and personally reviewed by me in its entirety. I confirm that the documentation accurately reflects all work , treatment, procedures, and medical decision making performed by me. Attending Attestation - Resident Resident Name: JorgeShayan guardado - HPI HPI: 10/11/18 20:58 The patient is a 37 year old female with no past medical history here today for evaluation of chest pain. The patient reports that she has been one week of intermittent left sided chest pain. She notes that it was constant today, sometimes radiates to her left arm, and notes no alleviating or aggravating factors. Patient denies headache, lightheadedness. Denies fever, chills. Denies shortness of breath. Denies nausea, vomiting, diarrhea, abdominal pain. Denies lower extremity edema. Allergies: anesthetics - amide type PCP: Mona Meyer - Physicial Exam PE: 10/11/18 21:05 Agree with resident's physical exam. - Medical Decision Making 10/11/18 21:20 37-year-old female with left-sided intermittent chest pain now becoming more constant On reevaluation patient now admits that [id number] daughter sleeps on the left side of her chest and also sits on her lap frequently requiring her to hold her up The pain is completely reproducible, pressure to the left costal sternal margin reproduces her chief complaint Plan for EKG and 1 set of cardiac enzymes as well as chest x-ray with likely discharge home and outpatient follow-up Patient was advised to avoid excessive use of that side in regards to lifting and positioning
[2018-10-11 21:41] LABS: ALBUMIN 3.5 g/dl (3.4-5.0); ALK PHOS 62 U/L (45-117); ANION GAP 3 MMOL/L (8-16); BILIRUBIN,TOTAL 0.6 mg/dL (0.2-1); BLOOD UREA NITROGEN 9 mg/dL (7-18); CHLORIDE 108 mmol/L (98-107); CO2 28 mmol/L (21-32); CREATININE 0.6 mg/dL (0.55-1.3); GLUCOSE,RANDOM 95 mg/dL (74-106); POTASSIUM 4.4 mmol/L (3.5-5.1); SGOT/AST 18 U/L (15-37); SGPT/ALT 25 U/L (13-61); SODIUM 140 mmol/L (136-145); TOT PROT 7.4 g/dl (6.4-8.2)
--- NOTE | 2018-10-11 21:43 | PDOC ---
History of Present Illness - General Chief Complaint: Chest Pain Stated Complaint: CHEST PAIN Time Seen by Provider: 10/11/18 20:39 History Source: Patient Exam Limitations: No Limitations - History of Present Illness Initial Comments: 10/11/18 21:30 37F with no PMH who presents to the ER with complaints of CP. The patient states that she's had 1 week of intermittent, L upper chest pain which radiates down her L arm, atraumatic, without exacerbating or alleviating factors, described as sharp/tightness. She states that it was intermittent for the week but became constant today. It is not associated with SOB, diaphoresis, nausea, vomiting, or radiation to her neck. She denies travel, hx of ca, recent surgery , hx of DVT/PE, and leg swelling. She denies any other symptoms. She admits to pain when pushing on her chest. Past History - Past Medical History Allergies/Adverse Reactions: Allergies Allergy/AdvReac Type Severity Reaction Status Date / Time Anesthetics - Amide Type Allergy Mild Itching Verified 10/11/18 20:27 Home Medications: Ambulatory Orders Clobetasol Propionate/Emoll [Clobetasol Emollient 0.05% Crm] 15 gm TP DAILY Ibuprofen [Motrin -] 400 mg PO TID #21 tablet 02/03/18 Asthma: No Cancer: No Cardiac Disorders: No COPD: No Diabetes: No (gestesational) HTN: No Seizures: No Thyroid Disease: No - Immunization History Immunization Up to Date: No - Suicide/Smoking/Psychosocial Hx Smoking Status: No Smoking History: Never smoked Have you smoked in the past 12 months: No Number of Cigarettes Smoked Daily: 0 Information on smoking cessation initiated: No Hx Alcohol Use: No Drug/Substance Use Hx: No Substance Use Type: None Hx Substance Use Treatment: No Review of Systems - Review of Systems Able to Perform ROS?: Yes Comments:: 10/11/18 21:43 GENERAL/CONSTITUTIONAL: No fever or chills. No weakness. HEAD, EYES, EARS, NOSE AND THROAT: No change in vision. No ear pain or discharge. No sore throat. CARDIOVASCULAR: + for chest pain. No palpitations or lightheadedness. RESPIRATORY: No cough, wheezing, shortness of breath, or hemoptysis. GASTROINTESTINAL: No nausea, vomiting, diarrhea, constipation, or abdominal pain. GENITOURINARY: No dysuria, frequency, hematuria, or change in urination. MUSCULOSKELETAL: No joint or muscle swelling or pain. No neck or back pain. SKIN: No rash or lesions. NEUROLOGIC: No headache, numbness, tingling, focal weakness, loss of consciousness, or change in strength/sensation. Is the patient limited Sinhala proficient: No *Physical Exam - Vital Signs Last Vital Signs Temp Pulse Resp BP Pulse Ox 98.0 F 68 16 103/63 100 10/11/18 20:25 10/11/18 20:25 10/11/18 20:25 10/11/18 20:25 10/11/18 20:25 - Physical Exam Comments: 10/11/18 21:44 GENERAL: Well developed, well nourished. Awake and alert. No acute distress. HEENT: Normocephalic, atraumatic. Hearing grossly normal. Moist mucous membranes. PERRLA, EOMI. No conjunctival pallor. Sclera are non-icteric. NECK: Supple. Full ROM. No JVD. CARDIOVASCULAR: Regular rate and rhythm. No murmurs, rubs, or gallops. PULMONARY: No evidence of respiratory distress. Lungs clear to auscultation bilaterally. No wheezing, rales or rhonchi. ABDOMINAL: Soft. Non-tender. Non-distended. No rebound or guarding. GENITOURINARY: No CVA tenderness bilaterally. MUSCULOSKELETAL: TTP over L anterior, upper chest. Normal range of motion at all joints. EXTREMITIES: No cyanosis. No clubbing. No edema. No calf tenderness or swelling. SKIN: Warm and dry. Normal capillary refill. No rashes. No jaundice. NEUROLOGICAL: Alert, awake, appropriate. Cranial nerves 2-12 grossly intact. Normal speech. Gait is normal without ataxia. PSYCHIATRIC: Cooperative. Good eye contact. Appropriate mood and affect. ED Treatment Course - LABORATORY CBC & Chemistry Diagram: 10/11/18 21:00 10/11/18 21:00 - ADDITIONAL ORDERS Additional order review: 10/11/18 21:00 RBC 4.75 MCV 79.1 L MCHC 32.8 RDW 14.7 MPV 7.9 Neutrophils % 57.3 Lymphocytes % 31.4 Monocytes % 10.1 Eosinophils % 0.6 Basophils % 0.6 - RADIOLOGY Radiology Studies Ordered: Category Date Time Status CHEST PA & LAT [RAD] Stat Radiology 10/11/18 21:22 Ordered - Medications Given in the ED: ED Medications Discontinued Medications Generic Name Dose Route Start Last Admin Trade Name Noah PRN Reason Stop Dose Admin Ketorolac Tromethamine 30 mg 10/11/18 20:56 10/11/18 21:15 Toradol Injection - IVPUSH 10/11/18 20:57 30 mg ONCE ONE Administration Medical Decision Making - Medical Decision Making 10/11/18 21:46 37F with no PMH who presents with reproducible CP. PERC negative. EKG unremarkable without signs of ischemia. Will check labs and single troponin, although low likelihood for ACS/PE as pain is reproducible. CXR pending. Will give toradol for pain. 10/11/18 22:38 Labs WNL including troponin. CXR negative on preliminary read. Will d/c with PCP f/u. *DC/Admit/Observation/Transfer Diagnosis at time of Disposition: Muscle strain, Muscle strain of anterior chest wall - Discharge Dispostion Disposition: HOME Condition at time of disposition: Stable Decision to Admit order: No - Referrals Referrals: Mitch Dunn MD [Primary Care Provider] - - Patient Instructions Printed Discharge Instructions: DI for Atypical Chest Pain Additional Instructions: Your ER visit is not complete until your follow up with your primary care physician. Please follow up with your primary care physician in 1-2 days. Take tylenol or motrin as needed for pain. Please return to the ER if you have any signs or symptoms of chest pain, shortness of breath, uncontrollable fever, chills, nausea, vomiting, numbness, tingling, or weakness in any part of your body, changes in vision, or slurred speech. Please return to the ER if symptoms persist, worsen, or new symptoms arise. - Post Discharge Activity
--- NOTE | 2018-10-13 10:57 | EKG ---
Test Reason : Blood Pressure : / mmHG Vent. Rate : 061 BPM Atrial Rate : 061 BPM P-R Int : 152 ms QRS Dur : 086 ms QT Int : 436 ms P-R-T Axes : 005 027 017 degrees QTc Int : 438 ms NORMAL SINUS RHYTHM NORMAL ECG WHEN COMPARED WITH ECG OF 17-JAN-2014 00:10, NO SIGNIFICANT CHANGE WAS FOUND Confirmed by TIFFANY MODI MD ([id number]) on 10/13/2018 10:56:38 AM Referred By: Confirmed By:TIFFANY MODI MD
== END 2018-10-11 22:47 | disposition home or self-care (01) ==
LOC: JER 20:19
PROC: 3E0333Z Introduction of Anti-inflammatory into Peripheral Vein, Percutaneous Approach (ICD-10-PCS; principal; 2018-10-11)
DX: S29.011A Strain of muscle and tendon of front wall of thorax, initial encounter (principal); X58.XXXA Exposure to other specified factors, initial encounter; Y93.89 Activity, other specified; Y92.89 Other specified places as the place of occurrence of the external cause
CPT/HCPCS: 36415; 71046-TC-FY; 80053; 82550; 84484; 84703; 85025; 93005; 93010; 99282-25

== ENCOUNTER 2023-09-18 00:51 | Inpatient (IN) | payer OTHER ==
[2023-09-18 01:48] LABS: BASO % 0.2 % (0-2.0); EOS % 0.3 % (0-4.5); HEMATOCRIT 40.5 % (32.4-45.2); HEMOGLOBIN 13.7 GM/dL (10.7-15.3); LYMPH % 27.6 % (8-40); MCH 27.8 pg (25.7-33.7); MCHC 33.9 g/dl (32.0-36.0); MEAN CELL VOLUME 81.9 fl (80-96); MEAN PLT VOLUME 7.9 fl (7.5-11.1); MONO % 7.4 % (3.8-10.2); NEUT % 64.5 % (42.8-82.8); PLATELET COUNT 338 10^3/uL (134-434); RBC 4.95 M/mm3 (3.60-5.2); RDW 14.3 % (11.6-15.6); WHITE BLOOD COUNT 8.6 K/mm3 (4.0-10.0)
[2023-09-18] MEDS: FAMOTIDINE 20 MG/50 ML IVPB 20 MG/50 ML MG IVPB ONE (01:49)
[2023-09-18] MEDS: SODIUM CHLORIDE 0.9% 500 ML INFUS.BAG IV ONE (01:49)
[2023-09-18] MEDS: MAG HYDROX/AL HYDROX/SIMETH 30 ML UNIT-DOSE CUP PO ONE (01:49)
[2023-09-18] MEDS: morphine CARPU-JECT 2 MG/1 ML DISP.SYRIN IVPUSH ONE ×4 (01:49→03:59)
[2023-09-18] MEDS: ONDANSETRON 4 MG/2 ML VIAL IVPUSH ONE (01:49)
[2023-09-18] MEDS ORDERED: MAG HYDROX/AL HYDROX/SIMETH 30 ML UNIT-DOSE CUP ONE (01:51)
[2023-09-18] MEDS ORDERED: ONDANSETRON 4 MG/2 ML VIAL ONE (01:51)
[2023-09-18] MEDS ORDERED: FAMOTIDINE 20 MG/50 ML IVPB 20 MG/50 ML MG IVPB ONE (01:51)
[2023-09-18 01:54] LABS: INR 0.98 (0.83-1.09); PROTHROMBIN TIME (PATIENT) 11.4 SEC (9.7-13.0)
[2023-09-18 01:57] LABS: ACTIVATED PTT 25.6 SECONDS (25.2-36.5)
[2023-09-18 02:06] LABS: POTASSIUM 3.7 mmol/L (3.5-5.1)
[2023-09-18 02:08] LABS: CALCIUM 9.3 mg/dL (8.5-10.1)
[2023-09-18 02:09] LABS: ALBUMIN 3.5 g/dl (3.4-5.0); BLOOD UREA NITROGEN 12.6 mg/dL (7-18); MAGNESIUM 1.9 mg/dL (1.8-2.4)
[2023-09-18 02:12] LABS: CREATININE 0.6 mg/dL (0.55-1.3)
[2023-09-18 02:13] LABS: BILIRUBIN,TOTAL 0.4 mg/dL (0.2-1); TOT PROT 7.4 g/dl (6.4-8.2)
[2023-09-18] MEDS: PIPERACILLIN/TAZOB 4.5 GM 4.5 GM in DEXTROSE 5%-WATER 100 ML IVPB ONE (03:33)
[2023-09-18] MEDS ORDERED: PIPERACILLIN/TAZOB 4.5 GM 4.5 GM/100 ML BAG IVPB ONE (03:36)
[2023-09-18] MEDS: LACTATED RINGERS SOLUTION 1,000 ML/1,000 ML INFUS.BAG IV SCH ×2 (03:58→08:43)
[2023-09-18 05:47] VITALS: BMI 32.5
[2023-09-18 08:10] LABS: HEMATOCRIT 37.7 % (32.4-45.2); HEMOGLOBIN 12.3 GM/dL (10.7-15.3); MCH 27.1 pg (25.7-33.7); MCHC 32.6 g/dl (32.0-36.0); MEAN PLT VOLUME 8.4 fl (7.5-11.1); PLATELET COUNT 291 10^3/uL (134-434); RBC 4.54 M/mm3 (3.60-5.2); WHITE BLOOD COUNT 12.8 K/mm3 (4.0-10.0)
[2023-09-18 08:21] LABS: POTASSIUM 4.1 mmol/L (3.5-5.1)
[2023-09-18 08:23] LABS: BLOOD UREA NITROGEN 8.1 mg/dL (7-18); CALCIUM 8.5 mg/dL (8.5-10.1); MAGNESIUM 1.8 mg/dL (1.8-2.4)
[2023-09-18 08:25] LABS: CHOLESTEROL 139 mg/dL (50-200)
[2023-09-18 08:26] LABS: PHOSPHOROUS 2.9 mg/dL (2.5-4.9)
[2023-09-18 08:27] LABS: ALBUMIN 3.2 g/dl (3.4-5.0); LDL CHOLESTEROL (ONLY SJRH) 80 mg/dL (5-100)
[2023-09-18 08:28] LABS: HDL CHOLESTEROL 57 mg/dL (40-60); TOT PROT 6.7 g/dl (6.4-8.2)
[2023-09-18 08:29] LABS: CREATININE 0.6 mg/dL (0.55-1.3)
[2023-09-18 08:31] LABS: BILIRUBIN,TOTAL 0.8 mg/dL (0.2-1)
[2023-09-18] MEDS: LIDOCAINE 4% PATCH TP SCH (08:43)
[2023-09-18] MEDS: INSULIN ASPART SLIDING SCALE (NOVOLOG) 1 VIAL SQ SCH (11:53)
[2023-09-18] MEDS: PIPERACILLIN/TAZOB 3.375 GM 3.375 GM in DEXTROSE 5%-WATER - 50 ML IVPB SCH (12:42)
[2023-09-18] MEDS: TRIMETHOBENZAMIDE HCL 200MG/2ML INJ IM PRN (15:45)
[2023-09-18] MEDS: ACETAMINOPHEN 1000 MG/100 ML BAG IVPB PRN (21:25)
[2023-09-18] MEDS: LIDOCAINE PATCH REMOVAL MC SCH (21:32)
[2023-09-19 08:27] LABS: BASO % 0.1 % (0-2.0); HEMATOCRIT 37.6 % (32.4-45.2); HEMOGLOBIN 12.6 GM/dL (10.7-15.3); LYMPH % 10.3 % (8-40); MCH 27.8 pg (25.7-33.7); MCHC 33.6 g/dl (32.0-36.0); MEAN CELL VOLUME 82.9 fl (80-96); MEAN PLT VOLUME 8.3 fl (7.5-11.1); NEUT % 80.6 % (42.8-82.8); PLATELET COUNT 276 10^3/uL (134-434); RBC 4.53 M/mm3 (3.60-5.2); RDW 14.2 % (11.6-15.6); WHITE BLOOD COUNT 12.9 K/mm3 (4.0-10.0)
[2023-09-19 08:29] LABS: POTASSIUM 3.7 mmol/L (3.5-5.1)
[2023-09-19 08:36] LABS: BLOOD UREA NITROGEN 5.5 mg/dL (7-18); CALCIUM 8.5 mg/dL (8.5-10.1)
[2023-09-19 08:39] LABS: BILIRUBIN,TOTAL 1.2 mg/dL (0.2-1); TOT PROT 6.5 g/dl (6.4-8.2)
[2023-09-19 08:40] LABS: CREATININE 0.5 mg/dL (0.55-1.3)
[2023-09-19] MEDS: PIPERACILLIN/TAZOB 3.375 GM 3.375 GM in DEXTROSE 5%-WATER - 50 ML IVPB ONE (12:03)
[2023-09-19] MEDS: PIPERACILLIN/TAZOB 3.375 GM 3.375 GM in DEXTROSE 5%-WATER - 50 ML IVPB SCH (12:03)
[2023-09-19] MEDS ORDERED: DEXAMETHASONE SOD PHOSPHATE 4 MG/1 ML VIAL ONE ×2 (13:11→15:12)
[2023-09-19] MEDS ORDERED: ROCURONIUM BROMIDE 50 MG/5 ML SYRINGE ONE ×2 (13:11→14:54)
[2023-09-19] MEDS ORDERED: KETOROLAC TROMETHAMINE 30 MG/1 ML VIAL ONE (13:11)
[2023-09-19] MEDS ORDERED: ONDANSETRON 4 MG/2 ML VIAL ONE (13:11)
[2023-09-19] MEDS ORDERED: PROPOFOL 20 ML ONE (13:11)
[2023-09-19] MEDS ORDERED: cefOXitin SODIUM 2 GM VIAL (RESTRICTED TO ID) IVPB ONE (13:13)
[2023-09-19] MEDS ORDERED: FENTANYL CITRATE/PF 50 MCG/ML VIAL ONE ×4 (13:15→14:46)
[2023-09-19] MEDS ORDERED: MIDAZOLAM HCL 2 MG/2 ML SINGLE DOSE VIAL ONE (13:15)
[2023-09-19] MEDS: cefOXitin SODIUM 2 GM VIAL (RESTRICTED TO ID) IVPB ONE ×2 (13:16→13:23)
[2023-09-19] MEDS ORDERED: SEVOFLURANE 250 ML BTL ONE (13:37)
[2023-09-19] MEDS ORDERED: GLYCOPYRROLATE 0.2 MG/1 ML VIAL ONE (13:54)
[2023-09-19] MEDS ORDERED: NEOSTIGMINE METHYLSULFATE 0.5 MG/1 ML - 10 ML MDV ONE (13:54)
[2023-09-19] MEDS ORDERED: LIDOCAINE HCL 1%, 10 MG/ML (20ML VIAL) ONE (15:06)
[2023-09-19] MEDS: LIDOCAINE HCL 1%, 10 MG/ML (50 mL VIAL) NR ONE (15:08)
[2023-09-19] MEDS ORDERED: oxyCODONE HCL 5 MG TABLET PO PRN ×4 (15:35→16:29)
[2023-09-19] MEDS ORDERED: ONDANSETRON 4 MG/2 ML VIAL IVPUSH PRN ×3 (15:35→17:31)
[2023-09-19] MEDS ORDERED: ACETAMINOPHEN 1000 MG/100 ML BAG IVPB PRN ×2 (16:29→17:31)
[2023-09-19] MEDS: LACTATED RINGERS SOLUTION 1,000 ML IV SCH ×3 (18:27→18:48)
[2023-09-19] MEDS: INSULIN ASPART SLIDING SCALE (NOVOLOG) 1 VIAL SQ SCH ×2 (18:49→22:23)
[2023-09-19] MEDS ORDERED: LIDOCAINE PATCH REMOVAL MC SCH (22:00)
[2023-09-19] MEDS: LIDOCAINE PATCH REMOVAL MC SCH ×2 (22:09)
[2023-09-19] MEDS ORDERED: INSULIN (NOVOLOG) ASPART 100 UNITS/ML 10ML VIAL ONE (22:23)
[2023-09-19] MEDS: oxyCODONE HCL 5 MG TABLET PO PRN (22:24)
[2023-09-20] MEDS: oxyCODONE HCL 5 MG TABLET PO PRN (01:51)
[2023-09-20] MEDS: ACETAMINOPHEN 1000 MG/100 ML BAG IVPB PRN (06:09)
[2023-09-20 07:43] LABS: POTASSIUM 3.7 mmol/L (3.5-5.1)
[2023-09-20 07:45] LABS: ALBUMIN 2.7 g/dl (3.4-5.0); BLOOD UREA NITROGEN 5.9 mg/dL (7-18)
[2023-09-20] MEDS ORDERED: ACETAMINOPHEN 500 MG TABLET (FP) PO SCH (07:45)
[2023-09-20 07:48] LABS: CREATININE 0.4 mg/dL (0.55-1.3)
[2023-09-20 07:50] LABS: BILIRUBIN,TOTAL 0.9 mg/dL (0.2-1)
[2023-09-20 07:51] LABS: HEMATOCRIT 35.4 % (32.4-45.2); HEMOGLOBIN 11.9 GM/dL (10.7-15.3); LYMPH % 8.4 % (8-40); MCH 27.8 pg (25.7-33.7); MCHC 33.7 g/dl (32.0-36.0); MEAN CELL VOLUME 82.3 fl (80-96); MONO % 8.2 % (3.8-10.2); NEUT % 83.4 % (42.8-82.8); PLATELET COUNT 278 10^3/uL (134-434); RDW 14.3 % (11.6-15.6)
[2023-09-20] MEDS ORDERED: LIDOCAINE 4% PATCH TP SCH (10:00)
[2023-09-20] MEDS: LIDOCAINE 4% PATCH TP SCH (10:03)
[2023-09-20] MEDS: ACETAMINOPHEN 500 MG TABLET (FP) PO SCH (12:07)
[2023-09-20] MEDS: PIPERACILLIN/TAZOB 2.25 GM 2.25 GM in DEXTROSE 5%-WATER - 50 ML IVPB SCH (13:06)
[2023-09-20] MEDS: ENOXAPARIN NA (PORCINE) 40 MG/0.4 ML DISP.SYRIN SQ SCH (15:22)
[2023-09-20] MEDS: SIMETHICONE 80 MG TAB.CHEW (FP) PO PRN (15:34)
[2023-09-20] MEDS: ACETAMINOPHEN 500 MG TABLET (FP) PO ONE (18:09)
[2023-09-20] MEDS: oxyCODONE HCL 5 MG TABLET PO ONE (18:10)
[2023-09-20 21:18] LABS: PH,URINE 8.5 (5.0-8.0); URINE APPEARANCE CLEAR; URINE BILIRUBIN NEGATIVE (NEGATIVE); URINE COLOR YELLOW; URINE GLUCOSE (UA) NEGATIVE (NEGATIVE); URINE KETONE NEGATIVE (NEGATIVE); URINE LEUK ESTERASE NEGATIVE (NEGATIVE); URINE NITRITE NEGATIVE (NEGATIVE); URINE PROTEIN NEGATIVE (NEGATIVE)
[2023-09-20] MEDS ORDERED: INSULIN (NOVOLOG) ASPART 100 UNITS/ML 10ML VIAL ONE (21:27)
[2023-09-20] MEDS: POLYETHYLENE GLYCOL (HEALTHYLAX) 3350 17 GM PACKET PO SCH (23:31)
[2023-09-21 08:51] LABS: HEMATOCRIT 35.2 % (32.4-45.2); HEMOGLOBIN 11.6 GM/dL (10.7-15.3); MCH 27.3 pg (25.7-33.7); MCHC 32.9 g/dl (32.0-36.0); MEAN PLT VOLUME 7.8 fl (7.5-11.1); PLATELET COUNT 283 10^3/uL (134-434); RBC 4.24 M/mm3 (3.60-5.2); RDW 14.1 % (11.6-15.6); WHITE BLOOD COUNT 9.4 K/mm3 (4.0-10.0)
[2023-09-21 09:08] LABS: POTASSIUM 3.8 mmol/L (3.5-5.1)
[2023-09-21 09:11] LABS: CALCIUM 8.2 mg/dL (8.5-10.1)
[2023-09-21 09:12] LABS: ALBUMIN 2.7 g/dl (3.4-5.0); BLOOD UREA NITROGEN 5.5 mg/dL (7-18); MAGNESIUM 2.3 mg/dL (1.8-2.4)
[2023-09-21 09:15] LABS: CREATININE 0.5 mg/dL (0.55-1.3)
[2023-09-21 09:17] LABS: BILIRUBIN,TOTAL 0.8 mg/dL (0.2-1)
[2023-09-21] MEDS ORDERED: INSULIN (NOVOLOG) ASPART 100 UNITS/ML 10ML VIAL ONE (11:58)
[2023-09-21] MEDS: POLYETHYLENE GLYCOL (HEALTHYLAX) 3350 17 GM PACKET PO SCH (13:25)
[2023-09-21 14:06] VITALS: BP 122/87; PULSE 81; RESP 20; TEMP 98.8
[2023-09-21] MEDS: IBUPROFEN 400 MG TABLET (FP) PO PRN (17:10)
== END 2023-09-21 17:47 | disposition home or self-care (01) | DRG 419 ==
LOC: JER 00:51 → JERBED 03:37 → J7W 05:17
PROVIDERS: ADMIT Internal Medicine
PROC: 0FT44ZZ Resection of Gallbladder, Percutaneous Endoscopic Approach (ICD-10-PCS; principal; 2023-09-19 12:00)
DX: K80.00 Calculus of gallbladder with acute cholecystitis without obstruction (principal); M54.89 Other dorsalgia; E66.9 Obesity, unspecified; Z68.32 Body mass index [BMI] 32.0-32.9, adult; E11.65 Type 2 diabetes mellitus with hyperglycemia; K74.60 Unspecified cirrhosis of liver; I10 Essential (primary) hypertension; D72.829 Elevated white blood cell count, unspecified; R50.82 Postprocedural fever
CPT/HCPCS: 36415; 71045-TC-FY; 74178-TC; 76705-TC; 80053; 80061; 81003; 82962; 83036; 83690; 83735; 84100; 84484; 84703; 85025; 85027; 85610; 85730; 86704; 86709; 86803; 86850; 86900; 86901; 87040; 87086; 87340; 87517; 88304-TC; 93005; 93010; 94760; 97116-GP; 97161-GP; 99285-25; J0131; Q9967